=== PATIENT | female | born 1980 | race Two or more races ===

== ENCOUNTER 2024-10-18 06:55 | Emergency (ER) | payer SELFPAY ==
[~2024-10-18] VITALS: Ht 177.8 cm; Wt 68.0 kg
[2024-10-18 06:56] VITALS: O2SAT 100
[2024-10-18 07:30] VITALS: O2SAT 95
[2024-10-18 07:50] VITALS: BP 129/73; PULSE 83; RESP 20
[2024-10-18 08:06] LABS: BASOPHILS % 0.6 % (0.0-2.0); EOSINOPHILS % 1.2 % (0.0-5.0); HEMATOCRIT. 37.5 % (36.0-48.0); HEMOGLOBIN. 12.3 g/dL (12.0-16.0); LYMPHOCYTES % 20.2 % (20.0-50.0); MEAN PLATELET VOLUME 7.2 fl (7.4-10.4); MONOCYTES % 5.6 % (2.0-8.0); NEUTROPHILS % 72.4 % (40.0-76.0); PLATELET 199 x1000/uL (130-400); RED BLOOD CELL COUNT 4.25 mill/uL (4.2-5.4); RED CELL DISTRIBUTION WIDTH 14.2 % (11.6-14.6)
[2024-10-18] MEDS: DEXTROSE 50% WATER 50ML SYRINGE IV ONE (08:17)
[2024-10-18 08:20] LABS: CREATININE 1.0 mg/dL (0.6-1.0)
[2024-10-18 08:21] LABS: ETHANOL BLOOD < 10 mg/dL (<10); UREA NITROGEN BLOOD 13 mg/dL (9-23)
[2024-10-18 12:15] LABS: *AMPHETAMINES SCREEN URINE NEGATIVE (NEGATIVE)
[2024-10-18 12:16] LABS: *BARBITURATES SCREEN URINE NEGATIVE (NEGATIVE); *BENZODIAZEPINES SCREEN URINE NEGATIVE (NEGATIVE); *COCAINE SCREEN URINE PRESUMPTIVE POSITIVE (NEGATIVE); CANNABINOID URINE SCREEN NEGATIVE (NEGATIVE); ECSTASY MDMA SCREEN URINE NEGATIVE (NEGATIVE); METHADONE URINE SCREEN NEGATIVE (NEGATIVE); OPIATES URINE SCREEN NEGATIVE (NEGATIVE); PHENCYCLIDINE URINE SCREEN NEGATIVE (NEGATIVE)
== END 2024-10-18 11:59 | disposition left against medical advice (07) ==
LOC: ER 06:55 → EDBEDREQ 08:36 → EDBEDREQTM 08:36 → ER 11:59 → CMPBEDREQ 10-20 08:02
DX: G93.40 Encephalopathy, unspecified (principal)
CPT/HCPCS: 80305; 80048; 80320; 82962; 85025; 36415; 70450; 96374; 99285; Z7610; A4606; G0480